=== PATIENT | female | born 1995 | race Caucasian/White ===

== ENCOUNTER 2022-05-12 14:09 | Emergency (ER) | payer OTHER ==
[~2022-05-12] VITALS: Ht 165.1 cm; Wt 61.4 kg
[2022-05-12 14:44] VITALS: BP 127/77
[2022-05-12] MEDS ORDERED: LIDOCAINE 2%/EPI 1:200,000/PF 10 ML VIAL ID ONE (14:45)
== END 2022-05-12 15:33 | disposition home or self-care (01) ==
LOC: EMS 14:10
DX: S61.213A Laceration without foreign body of left middle finger without damage to nail, initial encounter (principal); S61.215A Laceration without foreign body of left ring finger without damage to nail, initial encounter; W26.0XXA Contact with knife, initial encounter; Y93.89 Activity, other specified; Y92.89 Other specified places as the place of occurrence of the external cause; Y99.8 Other external cause status
CPT/HCPCS: 12002; 99282; J2001; Z7502

== ENCOUNTER 2022-09-20 16:49 | Emergency (ER) | payer OTHER ==
[~2022-09-20] VITALS: Ht 165.1 cm; Wt 61.4 kg
[2022-09-20] MEDS ORDERED: [UNRECOGNIZED DRUG - OTHER] IL (16:52)
[2022-09-20 17:19] VITALS: BP 111/62
[2022-09-20] MEDS ORDERED: CEPH-558 PO (17:45)
[2022-09-20] MEDS ORDERED: MUPI15CR12 TP (17:45)
== END 2022-09-20 17:56 | disposition home or self-care (01) ==
LOC: EMS 16:49
DX: S91.202A Unspecified open wound of left great toe with damage to nail, initial encounter (principal); L60.0 Ingrowing nail; W26.8XXA Contact with other sharp object(s), not elsewhere classified, initial encounter; Y93.89 Activity, other specified; Y92.89 Other specified places as the place of occurrence of the external cause; Y99.8 Other external cause status
CPT/HCPCS: 99283; Z7502